=== PATIENT | male | born 1970 | race Two or more races ===

== ENCOUNTER 2019-10-22 20:27 | Emergency (ER) | payer OTHER ==
[~2019-10-22] VITALS: Ht 172.7 cm; Wt 65.8 kg
[2019-10-22] MEDS ORDERED: BIKTARVY 50-201 EACH PO (20:51)
[2019-10-22] MEDS ORDERED: ZITHROMAX500 MG PO (22:33)
== END 2019-10-22 22:43 | disposition home or self-care (01) ==
LOC: ER 20:27
DX: J06.9 Acute upper respiratory infection, unspecified (principal)

== ENCOUNTER 2020-04-01 12:13 | Emergency (ER) | payer OTHER ==
[~2020-04-01] VITALS: Ht 175.3 cm; Wt 59.0 kg
[~2020-04-01 12:13] MED LIST: BIKTARVY 50-201 EACH PO; ZITHROMAX500 MG PO
[2020-04-01] MEDS ORDERED: DOXYCYCLINE HY100 MG PO (15:48)
[2020-04-01] MEDS ORDERED: KETO10TA2 PO (15:48)
[2020-04-01] MEDS ORDERED: HIBICLENS118 ML TOP (15:48)
== END 2020-04-01 15:57 | disposition home or self-care (01) ==
LOC: ER 12:13
DX: L02.31 Cutaneous abscess of buttock (principal); B95.61 Methicillin susceptible Staphylococcus aureus infection as the cause of diseases classified elsewhere

== ENCOUNTER → 2021-12-07 | Emergency (ER) | payer OTHER ==
[~2021-12-07] VITALS: Ht 172.7 cm; Wt 61.2 kg
[~2021-12-07] MED LIST changes: +DOXYCYCLINE HY100 MG PO; +HIBICLENS118 ML TOP; +KETO10TA2 PO; +LEVOFLOXACIN500 MG PO; +PEPCID AC20 MG PO
== END | disposition home or self-care (01) ==
LOC: ER 12:44
DX: N39.0 Urinary tract infection, site not specified (principal); R53.1 Weakness; R53.81 Other malaise

== ENCOUNTER 2022-03-13 12:53 | Emergency (ER) | payer OTHER ==
[~2022-03-13] VITALS: Ht 172.7 cm; Wt 63.5 kg
== END 2022-03-13 15:15 | disposition home or self-care (01) ==
LOC: ER 12:53
DX: L02.91 Cutaneous abscess, unspecified (principal); B20 Human immunodeficiency virus [HIV] disease